=== PATIENT | female | born 1980 | race Caucasian/White ===

== ENCOUNTER 2017-05-13 14:05 | Emergency (ER) | payer MEDICAID ==
[~2017-05-13] VITALS: Ht 162.6 cm; Wt 97.7 kg
[2017-05-13] MEDS ORDERED: ASPIRIN 81 MG TABLET CHEW PO ONE (14:30)
[2017-05-13 14:48] LABS: ASPARTATE AMINO TRANSFERASE 15 U/L (15-37); BLOOD UREA NITROGEN 18 mg/dL (7-18)
[2017-05-13 14:55] LABS: IS PT STATUS REG ER OR PRE ER? YES
[2017-05-13] MEDS ORDERED: SODIUM CHLORIDE FLUSH 10ML SYR IVF ONE (15:30)
[2017-05-13] MEDS ORDERED: KETOROLAC 30 MG/1 ML IVPush ONE (15:30)
[2017-05-13] MEDS ORDERED: LORazepam 2 MG/ML, 1ML IVPush ONE (15:30)
[2017-05-13] MEDS ORDERED: KETOROLAC 30 MG/1 ML ONE (15:32)
[2017-05-13] MEDS ORDERED: ASPIRIN 81 MG TABLET CHEW ONE (15:32)
[2017-05-13] MEDS ORDERED: LORazepam 2 MG/ML, 1ML ONE (15:33)
[2017-05-13] MEDS ORDERED: HYDROmorphone 1 MG/ML, 1ML ONE (16:50)
[2017-05-13] MEDS ORDERED: ONDANSETRON 2MG/ML, 2ML ONE (16:51)
[2017-05-13] MEDS ORDERED: ONDANSETRON 2MG/ML, 2ML IVPush ONE (17:00)
[2017-05-13] MEDS ORDERED: HYDROmorphone 1 MG/ML, 1ML IVPush PRN (17:00)
[2017-05-13 17:46] VITALS: BP 115/63
== END 2017-05-13 17:48 | disposition home or self-care (01) ==
LOC: ED 15:43
DX: R07.89 Other chest pain (principal); F41.1 Generalized anxiety disorder
CPT/HCPCS: 36415; 71010; 80053; 83690; 83880; 84484; 85025; 93005; 96374; 96375; 99285; J1885; J2060